=== PATIENT | female | born 1990 | race African-American/Black ===

== ENCOUNTER 2018-03-13 20:53 | Emergency (ER) | payer SELFPAY ==
[~2018-03-13] VITALS: Ht 170.2 cm; Wt 99.8 kg
[2018-03-13 21:00] VITALS: BP 100/69
[2018-03-13] MEDS ORDERED: ACETAMINOPHEN-1 EAC1 ORAL (22:35)
[2018-03-13] MEDS ORDERED: IBUPROFEN600 MG ORAL (22:35)
[2018-03-13 22:46] VITALS: BP 106/64
--- NOTE | 2018-03-14 10:47 | Diagnostic Imaging Report ---
Indication: Severe vaginal bleeding and pelvic pain Technique: Grayscale and duplex Doppler imaging of the pelvis performed utilizing a transabdominal scan and endovaginal scan. Comparison: None Findings: Heterogeneity and increased echogenicity of the central endometrial region noted with suggestion of a hematoma or blood within the endometrial canal. The endometrium itself is not well demonstrated or visualized. Uterus measures 11 x 6 x 7 cm. Left ovary is seen and appears normal with dopplerable blood flow measuring 3 x 3 x 1.6 cm. The right ovary is not seen. There is no free fluid. IMPRESSION: Endometrial canal blood. Endometrium thickness is difficult to evaluate on this study. Nonvisualization of the right ovary
--- NOTE | 2018-03-15 02:44 | Emergency Room Report ---
History of Present Illness General Chief Complaint: Abdominal Pain Source: Patient Present Illness HPI Patient presents with complaints of vaginal bleeding and Patient had not levels this information to me However speaking to the advanced manufacturing technician patient reported that she had gone to an clinic and taken pills yesterday She reports that they did not tell her anything And she was surprised when she had the bleeding At this time feels that she was likely 7 weeks' is which she was told previously She had 5 out of 10 pain and cramping vaginally with bleeding She is a G 1 P0 Denies any back or flank pain denies any dysuria frequency Allergies: Coded Allergies: No Known Allergies (Unverified , 03/13/18) Patient History Past Medical History: see triage record Pertinent Family History: none Last Menstrual Period: 2 months ago Reviewed Nursing Documentation: PMH: Agreed; PSxH: Agreed Nursing Documentation-PMH Past Medical History: No Stated History Review of Systems All Other Systems: negative except mentioned in HPI Physical Exam Vital Signs Date Time Temp Pulse Resp B/P (MAP) Pulse Ox O2 Delivery O2 Flow Rate FiO2 03/13/18 20:48 98.0 85 18 100/69 99 Room Air 98.1 Sp02 EP Interpretation: reviewed, normal General Appearance: well appearing, no apparent distress Head: normocephalic, atraumatic Eyes: bilateral eye PERRL, bilateral eye EOMI ENT: hearing grossly normal, normal pharynx, TMs + canals normal, uvula midline Neck: full range of motion, supple, no meningismus, no bony tend Respiratory: lungs clear, normal breath sounds, no rhonchi, no respiratory distress, no retraction, no accessory muscle use Cardiovascular #1: normal peripheral pulses, regular rate, rhythm, no edema, no gallop, no JVD, no murmur Gastrointestinal: normal bowel sounds, non tender, soft, no mass, no organomegaly, non-distended, no guarding, no hernia, no pulsatile mass, no rebound Genitourinary: no CVA tenderness Musculoskeletal: normal inspection Neurologic: oriented x3, responsive, family dentist III-XII nml as tested, motor strength/ tone normal, sensory intact Psychiatric: mood/affect normal Skin: normal color, no rash, warm/dry, palpation normal Lymphatic: normal inspection, no adenopathy Medical Decision Making Diagnostic Impression: Primary Impression: incomplete miscarriage ER Course With the patient's history and examination, multiple differentials considered, including but not limited to , ectopic , ovarian torsion, gastritis, cholecystitis, pancreatitis, appendicitis Given that the patient has taken in pills This is expected side effect Patient's ultrasound does not reveal any intrauterine , there was some thickening along with blood Possible incomplete miscarriage at this time There are no other signs of ruptured ectopic or evidence of ectopic Patient's beta Quant is documented and it is over 73,000 Patient will require repeat ultrasonography and continued hormone evaluations Patient will also need to return to the ER immediately if there is any change in her symptoms as far as increased pain or bleeding Labs Test 03/13/18 21:20 03/13/18 22:30 Human Chorionic Gonadotropin, Quant 57543 mIU/mL (1-6) Urine HCG, Qualitative Positive (NEGATIVE) CT/MRI/US Diagnostic Results CT/MRI/US Diagnostic Results : Impression pelvic ultrasoundPatient presents with complaints of vaginal bleeding and Patient had not levels this information to me However speaking to the advanced manufacturing technician patient reported that she had gone to an clinic and taken pills yesterday She reports that they did not tell her anything And she was surprised when she had the bleeding At this time feels that she was likely 7 weeks' is which she was told previously She had 5 out of 10 pain and cramping vaginally with bleeding She is a G 1 P0 Denies any back or flank pain denies any dysuria frequency Last Vital Signs Date Time Temp Pulse Resp B/P (MAP) Pulse Ox O2 Delivery O2 Flow Rate FiO2 03/13/18 22:46 [id number] 91 16 106/64 100 Room Air 208.6 Status: improved Disposition: HOME, SELF-CARE Condition: Improved Scripts Acetaminophen With Codeine (T#3) (TYLENOL #3 TAB*) Y Tab 1 TAB ORAL Q8H PRN for For Pain, #7 TAB Prov: Nancy Llanes DO 03/13/18 Ibuprofen* (MOTRIN*) 600 Mg Tablet 600 MG ORAL Q8H PRN for For Pain, #15 TAB 0 Refills Prov: Nancy Llanes DO 03/13/18 Referrals: NOT CHOSEN IPA/MD,REFERRING (PCP) Patient Instructions: Prostaglandin-Induced , Care After, Incomplete Miscarriage Additional Instructions: Patient is provided with the discharge instructions notified to follow up with primary doctor in the next 2-3 days otherwise return to the er with any worsening symptoms. Please note that this report is being documented using DRAGON technology. This can lead to erroneous entry secondary to incorrect interpretation by the dictating instrument. Nancy Llanes DO Mar 15, 2018 02:44
== END 2018-03-13 22:55 | disposition home or self-care (01) ==
LOC: EDBD 20:53 → EMR 21:34
DX: O03.4 Incomplete spontaneous abortion without complication (principal)
CPT/HCPCS: 36415; 76830; 76856; 81025; 84702; 99284